=== PATIENT | female | born 1965 | race Caucasian/White ===

== ENCOUNTER 2021-05-30 10:12 | Day surgery (SDC) | payer OTHER, SELFPAY ==
--- NOTE | 2021-05-29 13:48 | HO.ANESPROP2 ---
HPI - Anesthesia Eval Consult details Narrative: 55yo F for Right Philip Bunionectomy PMFSH Past Medical History Medical History COVID-19 vaccine series completed Depression GERD (gastroesophageal reflux disease) Peptic ulcer Surgical History Surgical History H/O colonoscopy History of esophagogastroduodenoscopy (EGD) History of loop electrical excision procedure (LEEP) Hx of tubal ligation Social History Social History Are you a primary field care coordinator to a significant other at home: No Do you presently have visiting nurse or other home services: No Patient Tobacco Use Status: Never used Tobacco Use of substances other than those prescribed or required for medical reasons: Yes Substance Use Frequency: Occasionally Have you been hit, kicked, punched, or otherwise hurt by someone within the past year? If so, by whom?: No Are you DNR?: No Advance Directives: Yes (recently filled out w/PCP 05/21/21 (is daughter & son)) Advance Directives on File: No Recently lost weight without trying: No Eating poorly because of decreased appetite: No Nutrition Risks: No Nutritional Risk Patient : No Poor oral hygiene: No Meds Allergies Allergy/AdvReac Type Severity Reaction Status Date / Time latex Allergy Intermediate Itching Verified 05/30/21 10:30 Home Medications Medication Instructions Recorded Confirmed Last Taken Type acetaminophen 650 mg 650 mg PO Q8H PRN 05/23/21 05/23/21 Unknown History tablet,extended release bupropion HCl 150 mg tablet,12 hr 450 mg PO DAILY 05/23/21 05/23/21 Unknown History sustained-release (Wellbutrin SR) omeprazole 20 mg tablet,delayed 20 mg PO DAILY 05/23/21 05/23/21 Unknown History release Exam Exam Date and Time: May 29, 2021 1348 Height,Weight and Vital Signs: Height 5 ft 7 in Weight 58.06 kg Assessment and Plan Assessment Anesthesia Assessment: Chart Reviewed
--- NOTE | 2021-05-29 14:29 | HP_ITS ---
DATE OF SERVICE: 05/30/2021 DATE OF PROPOSED SURGERY: 05/30/2021. PREOPERATIVE DIAGNOSIS: Hallux rigidus, right first metatarsophalangeal joint. PLANNED PROCEDURE: Philip bunionectomy of the right foot. PLANNED ANESTHESIA: MAC anesthesia. CHIEF COMPLAINT AND HISTORY OF PRESENT ILLNESS: Wilma Reyes is a 55-year-old female who relates history of painful right great toe joint present over the past several years duration. She relates her pain is aggravated by shoe gear and walking activity. Conservative treatment consisting of rest, accommodative shoe gear, Tylenol, and cortisone injection has only given transient relief and the patient is now requesting surgical treatment. PAST MEDICAL HISTORY: Remarkable for anxiety, arthritis, depression, migraine headaches, sciatica, and history of stomach ulcer. CURRENT MEDICATIONS: The patient takes bupropion, omeprazole, and Tylenol. FAMILY HISTORY: Significant for diabetes, hypertension, and stroke. SOCIAL HISTORY: The patient denies smoking, drinks 1 to 2 cups of coffee per day, denies use of recreational drugs. She does relate alcohol consumption. ALLERGIES: THE PATIENT HAS NEGATIVE REACTION TO LATEX. PODIATRIC PHYSICAL EXAM: VASCULAR EXAM: The patient displays +2/4 pulses, DP and PT arteries with bilateral normal cap refill time noted. NEUROLOGIC EXAM: Reveals intact sensation. DERMATOLOGIC EXAM: Reveals intact skin. ORTHOPEDIC EXAM: Reveals painful limited range of motion of the right first metatarsophalangeal joint with pain on palpation primarily in the dorsal eminence of the right first metatarsal head. The patient was seen most recently in my office on May 06, 2021. Preoperative informed consent was obtained from the patient that day for her planned right foot surgery. Preoperative medical clearance will be provided by her primary care physician, Dr. Darrel Prince. FRIDA Rodríguez/CLARY / [id number]
[2021-05-30] VITALS (7 sets, daily range): BP systolic 115–142; BP diastolic 64–97; PULSE 68–79; RESP 16–18; TEMP 36.8–37; O2SAT 98–100
[2021-05-30] MEDS: Lactated Ringers 1,000 ML 100 ML IVCONT (10:56)
--- NOTE | 2021-05-30 11:20 | P.CONAN_ITS ---
[facility] Past Medical History Medical History COVID-19 vaccine series completed Depression GERD (gastroesophageal reflux disease) Peptic ulcer Functional capacity: independent ambulation Patient : No Family History Family history of problems with anesthesia: No Surgical History Surgical History H/O colonoscopy History of esophagogastroduodenoscopy (EGD) History of loop electrical excision procedure (LEEP) Hx of tubal ligation Social History Social History Are you a primary outdoor emergency care technician to a significant other at home: No Do you presently have visiting nurse or other home services: No Patient Tobacco Use Status: Never used Tobacco Use of substances other than those prescribed or required for medical reasons: Yes Substance Use Frequency: Occasionally Have you been hit, kicked, punched, or otherwise hurt by someone within the past year? If so, by whom?: No Are you DNR?: No Advance Directives: Yes (recently filled out w/PCP 05/21/21 (is daughter & son)) Advance Directives on File: No Recently lost weight without trying: No Eating poorly because of decreased appetite: No Nutrition Risks: No Nutritional Risk Patient : No Poor oral hygiene: No Meds Allergies Allergy/AdvReac Type Severity Reaction Status Date / Time latex Allergy Intermediate Itching Verified 05/30/21 10:30 Active Medications: Current Medications Lactated Ringer's (Lr) 1,000 mls @ 100 mls/hr IVCONT .Q10H MARK Last Admin: 05/30/21 10:56 Dose: 100 mls/hr Documented by: Home Medications Medication Instructions Recorded Confirmed Last Taken Type acetaminophen 650 mg 650 mg PO Q8H PRN 05/23/21 05/23/21 Unknown History tablet,extended release bupropion HCl 150 mg tablet,12 hr 450 mg PO DAILY 05/23/21 05/23/21 Unknown History sustained-release (Wellbutrin SR) omeprazole 20 mg tablet,delayed 20 mg PO DAILY 05/23/21 05/23/21 Unknown History release Exam Exam Date and Time: May 30, 2021 1120 Height,Weight and Vital Signs: Height 5 ft 7 in Weight 58.06 kg Last Vital Signs Temp 98.3 F 05/30/21 10:45 Pulse 79 05/30/21 10:45 Resp 16 05/30/21 10:45 BP 142/75 H 05/30/21 10:45 Pulse Ox 99 05/30/21 10:45 Airway Mallampati Class: II TM Dist: >3cm Neck ROM: Full Heart: RRR Lungs: CTA Assessment and Plan Final Anesthetic Review Family History of Problems with Anesthesia: No
--- NOTE | 2021-05-30 12:49 | MHC.SHP ---
Pre-Procedural Eval Section A Date of Service: 05/30/21 The patient is an INPATIENT: No The History & Physical has been completed within 30 days and I have reviewed it.: Yes Section B Chief Complaint: Hallux Rigidus Allergies: Allergies Allergy/AdvReac Type Severity Reaction Status Date / Time latex Allergy Intermediate Itching Verified 05/30/21 10:30 Plan Diagnosis/Plan: Unchanged I have reviewed the history and physical and performed a pertinent physical examination on my patient. No changes have occurred unless specified.
--- NOTE | 2021-05-30 12:50 | PM.PROC ---
Brief Operative Note Date of procedure: 05/30/21 Pre-op diagnosis: hallux rigidus right Post-op diagnosis: same Procedure: marr bunionectomy right foot Anesthesia: MAC Surgeon: Gurinder Dudley Resident Associate: Irene Thapa Estimated blood loss (mL): 1.0 Condition: stable Disposition: PACU
--- NOTE | 2021-05-30 20:47 | OP_ITS ---
SURGEON: Gurinder Dudley DPM PREOPERATIVE DIAGNOSIS: Hallux rigidus, right foot. POSTOPERATIVE DIAGNOSIS: Hallux rigidus, right foot. PROCEDURE PERFORMED: Duggan bunionectomy of the right foot. ESTIMATED BLOOD LOSS: COMPLICATIONS: ANESTHESIA: Consisted of local administration of a total of 12 mL of an equal mix of 2% lidocaine with epinephrine 1:100,000 and 0.5% Marcaine plain. Intravenous sedation was provided by the Anesthesia Department. ASSISTANTS: Dr. Thapa. SPECIMENS: INTRODUCTION: The patient was brought to the operating room and placed on the operating table in supine position. After having been suitably anesthetized with local infiltrative anesthesia, the right lower extremity was prepped and draped in usual sterile manner. The right foot was exsanguinated utilizing Esmarch bandage and right ankle tourniquet was inflated to 250 mmHg pressure for the duration of the procedure. DUGGAN BUNIONECTOMY, RIGHT FOOT. Attention was directed to the dorsal aspect of the right first metatarsophalangeal joint, where an incision approximately 7 cm in length was effected and centered over the dorsum of the right first metatarsophalangeal joint. The incision was deepened in same plane and hemostasis was acquired as necessary. The skin margins were underscored and retracted. A dorsal linear capsule incision was then effected and the capsule and periosteum were underscored and retracted. Please note that during exposure, there were 3 loose osteophytes noted on the dorsum of the first metatarsophalangeal joint and these were all easily excised. The hypertrophic medial eminence of the first metatarsal head was resected and then utilizing the sagittal saw, bone was resected from the head of the first metatarsal in a modified Eddie fashion to resect hypertrophic bone as well as diseased cartilage. Utilizing bone rongeur and bone forceps, remaining hypertrophic bone from the base of the proximal phalanx was resected and then all exposed bone was rasped to a smooth utilizing a power reciprocating rasp. The first intermetatarsal space was exposed via blunt and sharp dissection. McGlamry elevator was used to free the adhesions from the sesamoid complex at the plantar aspect of the first metatarsal head and then a lateral capsulotomy and adductor tenotomy were performed via sharp dissection. The wound was irrigated with copious amounts of sterile saline. Capsule was closed maintaining the joint in a corrected position utilizing 3-0 Vicryl. The skin margins were closed with 4-0 Monocryl in subcuticular and then reinforced with 4-0 nylon simple sutures. CONCLUSION: At the conclusion of this procedure, the area was injected with 5 mL of Marcaine 0.5% plain, 1 mL of dexamethasone phosphate. Steri-Strips were applied to the incisions. Sterile Betadine-soaked gauze, sterile gauze, Kerlix fluffs, and Conform were applied. The right ankle tourniquet was deflated. Normal blood flow was reestablished to the right lower extremity. FINAL DISPOSITION: The patient is discharged home with instructions for self-care and include the followin. To keep the dressings dry, clean, and intact. 2. To keep the right leg elevated with ice above the ankle. 3. To take all medications as prescribed. 4. To limit activity to minimum. 5. To always use surgical shoe and crutches, ambulating in a partial weightbearing fashion on the right lower extremity. 6. The patient has prescriptions for Relafen 750 mg, total #60 one p.o. b.i.d. p.c., prescription for gabapentin 400 mg, total #10 one p.o. daily at bedtime; and lastly prescription for oxycodone 5 mg, total #10 sig 1 p.o. q.6h p.r.n. pain. Also, the patient is instructed to use Tylenol if needed for breakthrough pain in between the Relafen dosage. FRIDA Rodríguez/CLARY / [id number]
== END 2021-05-30 14:15 | disposition home or self-care (01) ==
PROVIDERS: PCP Internal Medicine; Visit Provider Podiatrist
PROC: (CPT 28292; principal; 2021-05-30 11:40)
DX: M20.21 Hallux rigidus, right foot (principal); M19.90 Unspecified osteoarthritis, unspecified site; F32.9 Major depressive disorder, single episode, unspecified; Z79.899 Other long term (current) drug therapy
CPT/HCPCS: 28292; 88304; 88311; J0690; J1100; J2250; J3010